=== PATIENT | female | born 1940 | race Caucasian/White ===

== ENCOUNTER 2023-03-11 09:28 | Emergency (ER) | payer MEDICARE, SELFPAY ==
--- NOTE | 2023-03-11 09:34 | ED.GENADULT ---
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 Patient states that 5 days ago she had an episode of dizziness with the room spinning after attempting to go for a walk. Patient states that she got very sweaty and had to lie down. Patient states that the episode eventually passed but she continues to feel generally unwell. Patient denies any current dizziness, lightheadedness, abdominal pain, nausea, vomiting, fever, chills, blurry vision, double vision, loss of vision, chest pain, difficulty breathing, shortness of breath, back pain, night sweats, pain with urination, increased urinary frequency, increased urinary urgency, blood in her urine or stool, syncope or a near syncopal episode, recent trauma or falls, bowel incontinence, bladder incontinence, bowel retention, bladder retention, or any other complaints at this time. Onset (ago): day(s) (5) Severity: mild Relieving factors: none Exacerbating factors: none Associated symptoms: denies other symptoms Treatments prior to arrival: none Related Data Previous Rx's Medication Instructions Recorded cefuroxime axetil 250 mg tablet 250 mg PO BID 7 days #14 tabs 03/11/23 Allergies Allergy/AdvReac Type Severity Reaction Status Date / Time Penicillins [PCN] Allergy Intermediate TOTAL BODY Verified 03/11/23 09:57 RASH Sulfa (Sulfonamide Allergy Mild HIVES Verified 03/11/23 09:57 Antibiotics) [SULFA (SULFONAMIDE ANTIBIOTICS)] amoxicillin [From AUGMENTIN] Allergy Unknown UNKNOWN Verified 03/11/23 09:57 clavulanic acid Allergy Unknown UNKNOWN Verified 03/11/23 09:57 [From AUGMENTIN] caffeine [CAFFEINE] AdvReac Unknown GI Verified 03/11/23 09:57 codeine [CODEINE] AdvReac Unknown GI Verified 03/11/23 09:57 Review of Systems Constitutional: Constitutional: Reports no additional constitutional complaints, Denies chills, Denies fever(s) and Denies night sweats Eyes: Eyes: Reports no additional eye complaints, Denies blurry vision, Denies change in vision, Denies diplopia, Denies eye discharge, Denies loss of vision and Denies eye pain ENT: Denies dizziness Cardiovascular: Cardiovascular: Reports no additional cardiovascular complaints, Denies chest pain, Denies lightheadedness, Denies Loss of Consciousness and Denies dyspnea Respiratory: Respiratory: Reports no additional respiratory complaints and Denies dyspnea Gastrointestinal: Gastrointestinal: Reports no additional gastrointestinal complaints, Denies abdominal pain, Denies melena, Denies hematochezia, Denies change in bowel habits and Denies change in stool character Genitourinary: Genitourinary: Denies hematuria, Denies urinary frequency, Denies dysuria, Denies urinary incontinence, Denies urinary hesitancy and Denies urinary urgency Musculoskeletal: Musculoskeletal: Reports no additional musculoskeletal complaints, Denies numbness and Denies tingling Neurologic: Denies dizziness, Denies loss of vision, Denies numbness and Denies tingling Psychiatric: Psychiatric: Reports no additional psychiatric complaints Endocrine: Endocrine: Reports no additional endocrine complaints Hematologic/Lymphatic: Hematologic/Lymphatic: Reports no additional hematologic/lymphatic complaints Allergic/Immunologic: Allergic/Immunologic: Reports no additional allergic/immunologic complaints PMFSH Past Medical History Attestation statement: The following information was validated with the patient. Source: old records reviewed and nursing notes reviewed Onset Date is defined in the Problem List Problems that require an onset date and time if occurred within 24 hrs of arrival to the ED Aortic Dissection and Rupture; Neurologic impairment; Cardiopulmonary Arrest; Endotracheal Intubation; Insertion or Replacement of Mechanical Circulatory Assist Device Social History Social History Alcohol intake: current Alcohol type: wine Smoked in Last 30 Days: No Advance Directives: No Advance Directives Information Provided: Yes Physical Exam ED Vital Signs: Vital Signs - 24 hr 03/11/23 09:51 03/11/23 09:59 Temperature 97.9 F Pulse Rate 94 81 Respiratory Rate 16 Blood Pressure 150/75 H Pulse Oximetry 97 Oxygen Delivery Method Room Air BMI result Body Mass Index 27.3 Const General: cooperative, no acute distress, alert and awake Nutritional Appearance: well nourished Orientation/consciousness: patient oriented x3 Limitations: no limitations HENMT Head: Yes normal to inspection and Yes atraumatic Ears: hearing grossly normal bilaterally and external ears normal General nose exam: Normal external nose present, no nasal discharge noted and no epistaxis Face and sinus: Yes normal facial exam, No abrasion and No laceration Mouth: Normal oral and palatal mucosa present, no drooling and no muffled voice Eyes General: appearance normal, both eyes and all related structures Periorbital: periorbital findings normal Eyelids: Yes eyelids normal Conjunctivae: conjunctivae normal Pupils: Equal, round and reactive pupils present EOM: EOMs intact bilaterally Neck Neck: Yes normal visual inspection, Yes full ROM and Yes no lymphadenopathy Chest Chest palpation & inspection: normal inspection of the chest Resp Effort & Inspection: normal respiratory effort and able to speak in complete sentences GI Inspection: Yes normal to inspection Neuro General: patient oriented x3 and moves all extremities Cranial nerves: Yes Equal, round and reactive pupils present Cognition (Neuro): normal cognition Motor exam (neuro): 5/5 motor strength present throughout Sensory Exam: Normal double simultaneous stimulation for sensation Coordination: [id number] test normal Extrem General: Yes normal to inspection, Yes full ROM and Yes capillary refill normal Psych Appearance: grossly normal Mental Status: mental status grossly normal Affect: normal affect Attitude: cooperative Thought process: Normal thought process present Thought content: Normal thought content present Insight: Good insight present (Psych) Medical Decision Making Medical Decision Making MDM Narrative: Patient is an 82 year old assigned female at with a 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 Patient's physical exam was unremarkable. Patient's blood work was unremarkable. including a negative troponin. Patient's urine showed an acute infection. Patient's EKG showed a LBB which is chronic for the patient (reviewed previous EKG from 2019 done in PCP office). Patient's chest x-ray and head CT showed no acute process. I explained my physical exam findings as well as all test results to the patient. I answered all questions asked by the patient. I stressed the importance of the patient taking her medication as prescribed. I stressed the importance of the patient following up with her primary care provider. I stressed the importance of the patient returning to the emergency department immediately if her symptoms were to worsen or if she were to develop any dizziness, shortness of breath, difficulty breathing, chest pain, blurry vision, loss of vision, nausea, vomiting, abdominal pain, fever, chills, back pain, or any other complaints. Patient verbalized agreement and understanding with this treatment plan and discharge. Differential Diagnosis Differential Diagnoses: The differential diagnosis associated with the presentation includes URI Viral illness COVID-19 Influenza RSV UTI Admission/Observation Consideration of admission/observation: Escalation of care including admission/observation considered Patient would have been admitted to the hospital had her work up had any findings where hospital admission was appropriate and her clinical presentation warranted hospital admission. Lab Data [facility] Lab Attestation statement: I reviewed the patient's lab results. My interpretation of these results are in the [facility] Rationale portion of this note. 03/11/23 10:19 03/11/23 10:19 Labs: Lab Results 03/11/23 03/11/23 Range/Units 10:13 10:19 WBC 5.8 (4.8-10.8) X10*3/uL RBC 4.99 (4.20-5.50) X10*6/uL Hgb 14.2 (12.0-16.0) g/dl Hct 43.3 (37.0-47.0) % MCV 86.8 (80.0-98.0) fL MCH 28.5 (27.0-33.0) pg MCHC 32.8 (31.0-35.0) g/dl RDW 13.3 (11.0-16.0) % Plt Count 120 L (160-400) X10*3/uL MPV Not Reportable Immature Gran % (Auto) 0.3 (0.0-0.4) % Neut % (Auto) 66.9 (45-73) % Lymph % (Auto) 17.8 L (20-40) % [place] % (Auto) 13.1 H (2-11) % Eos % (Auto) 1.0 (0-4) % Baso % (Auto) 0.9 (0-2) % Lymph # (Auto) 1.0 L (1.2-4.9) X10*3/uL [place] # (Auto) 0.8 (0.1-1.2) X10*3/uL Eos # (Auto) 0.1 (0.0-0.4) X10*3/uL Baso # (Auto) 0.1 (0.0-0.2) X10*3/uL Abs Immat Gran (auto) 0.02 (0.00-0.03) X10*3/uL Absolute Neuts (auto) 3.9 (2.0-8.3) x10*3/uL Absolute Nucleated RBC 0.000 (0.0-0.012) X10*3/uL Nucleated RBC % (auto) 0.0 (0.0-0.2) /100WBC Smear Tech's Comments VERIFIED PT 11.5 (11.1-13.3) SEC INR 0.9 (0.9-1.1) APTT 23.2 L (26.0-36.4) SEC Sodium 142 (135-145) mmol/L Potassium 4.3 (3.3-5.1) mmol/L Chloride 108 (96-108) mmol/L Carbon Dioxide 28 (22-29) mmol/L Anion Gap 10 L (12-20) BUN 14 (9-16) mg/dL Creatinine 0.81 (0.5-1.4) mg/dL Estim Creat Clear Calc 51.1 Estimated GFR > 60 Random Glucose 97 (60-115) mg/dL Calcium 9.8 (8.4-10.2) mg/dL Magnesium 2.1 (1.6-2.6) mg/dL Total Bilirubin 0.6 (0.0-1.0) mg/dL AST 20 (5-31) U/L ALT 14 (0-31) U/L Alkaline Phosphatase 69 (39-117) U/L Troponin I High Sens 3.7 (<3.5-17.0) ng/L Total Protein 7.4 (6.5-8.0) g/dL Albumin 4.3 (3.5-5.0) g/dL Urine Color Yellow Urine Appearance Cloudy Urine pH 7.0 (5.0-9.0) Ur Specific [place] 1.015 (1.005-1.025) Urine Protein Trace (Neg-Trace) mg/dL Urine Glucose (UA) Negative (Negative) mg/dL Urine Ketones Trace (Negative) mg/dL Urine Blood Negative (Negative) Urine Nitrite Negative (Negative) Ur Leukocyte Esterase Moderate (2+) H (Negative) Urine RBC 3-5 H (0-2) /HPF Urine WBC >50 H (0-5) /HPF Ur Squamous Epith Cells 0-2 (0-2) /HPF Urine Bacteria 4+ (None Seen) Hyaline Casts 0-2 (0-2) /LPF Influenza Type A (PCR) NEGATIVE (Negative) Influenza Type B (PCR) NEGATIVE (Negative) RSV RNA Qual (PCR) NEGATIVE (Negative) SARS-CoV-2 RNA (RT-PCR) NEGATIVE (Negative) Independent Interpretation I performed an independent interpretation of an: EKG, Plain X-Ray and CT Scan Interpretation: My interpretation is in agreement with the radiologist's impression of these imaging studies. EXAMINATION: CT HEAD WITHOUT CONTRAST CLINICAL INFORMATION: Dizziness COMPARISON: None available. TECHNIQUE: Contiguous axial imaging was performed from the skull base to vertex without intravenous administration of contrast. This CT examination was performed using dose optimization techniques as appropriate, variously including the following: *Automated exposure control *Adjustment of mA and/or kV according to patient size (this includes techniques or standardized protocols for targeted exams where dose is matched to indication/reason for exam; i.e. extremities or head) *Use of iterative reconstruction technique DLP: 575.00 mGy-cm FINDINGS: The ventricles and sulci are normal in size and configuration. No acute hemorrhage, mass effect or shift is evident. Tabares-white differentiation is maintained. In the posterior fossa, the brainstem, cerebellum and fourth ventricle image normally. The orbits are aphakic. The bony calvarium is intact. Mucosal thickening is noted within bilateral ethmoid air cells. CT/CT head/brain wo IV con IMPRESSION: 1. Unremarkable noncontrast brain CT. No acute hemorrhage, mass affect, shift or acute intracranial pathology. Dictated By: Oscar Barrios MD Signed By: Electronically signed by Oscar Barrios MD 03/11/23 1059: EXAMINATION: XR CHEST 2 VIEW CLINICAL INFORMATION: Dizziness COMPARISON: None TECHNIQUE: PA and lateral views of the chest obtained. FINDINGS: The lungs are clear. There are no pleural effusions. The cardiomediastinal silhouette is normal. Poststernotomy changes are present. XR/XR chest 2V IMPRESSION: No acute disease. Dictated By: Oscar Barrios MD Signed By: Electronically signed by Oscar Barrios MD 03/11/23 1040 Vent. Rate: 086 BPM Atrial Rate: 086 BPM P-R Int: 134 ms QRS Dur: 134 ms QT Int: 388 ms P-R-T Axes: 031 -51 090 degrees QTc Int: 464 ms Normal sinus rhythm Left axis deviation Left bundle branch block Abnormal ECG No previous ECGs available DD/ 0957 Radiology Impression Discussion of test interpretation with radiology: I have reviewed the radiologist's reading. Independent Historian Clinical information obtained from an independent historian. History obtained from or confirmed by: EMS (EMS provided additional history and confirmed the history provided by your patient.) Prescription Management I considered prescription management with: Antibiotic (patient prescribed an antibiotic for her UTI.) Discharge Plan Discharge Clinical Impression: Urinary tract infection Patient Disposition: Home, Self-Care Instructions: Urinary Tract Infection in Older Adults (ED) Additional Instructions: You expressed wanting an echocardiogram in the emergency department however, your current symptoms do no warrant an emergent echo. I recommend you following up with your primary care proivder but need for an echocardiogram on an out patient basis. Follow up with your primary care provider. Return to the emergency department immediately if your symptoms worsen or if you develop any dizziness, shortness of breath, difficulty breathing, chest pain, blurry vision, loss of vision, nausea, vomiting, abdominal pain, fever, chills, back pain, or any other complaints. Prescriptions: New cefuroxime axetil 250 mg tablet 250 mg PO BID 7 Days Qty: 14 0RF Referrals: Mahendra Giles MD [Primary Care Provider] - Print Language: Czech
[2023-03-11 09:42] VITALS: BP 150/82; PULSE 94; O2SAT 97
[2023-03-11 09:51] VITALS: BP 150/75; PULSE 94; RESP 16; TEMP 36.6; O2SAT 97; BMI 27.3
[2023-03-11 09:59] VITALS: PULSE 81
[2023-03-11 10:44] LABS: Alanine Aminotransferase 14 U/L (0-31); Albumin Level 4.3 g/dL (3.5-5.0); Alkaline Phosphatase 69 U/L (39-117); Anion Gap 10 (12-20); Aspartate Amino Transferase 20 U/L (5-31); Bilirubin Total 0.6 mg/dL (0.0-1.0); Blood Urea Nitrogen 14 mg/dL (9-16); Calcium 9.8 mg/dL (8.4-10.2); Carbon Dioxide 28 mmol/L (22-29); Chloride 108 mmol/L (96-108); Creatinine Clr Calc Pharmacy 51.1; Estimated Glomerular Filt Rate > 60; Glucose Random 97 mg/dL (60-115); Magnesium 2.1 mg/dL (1.6-2.6); Potassium 4.3 mmol/L (3.3-5.1); Sodium 142 mmol/L (135-145); Total Protein 7.4 g/dL (6.5-8.0)
[2023-03-11 11:42] VITALS: BP 139/77; PULSE 77; RESP 16; O2SAT 96
== END 2023-03-11 12:07 | disposition home or self-care (01) ==
PROVIDERS: Physician Assistant Medical; Emergency Provider Emergency Medicine; PCP Family Medicine
DX: R42 Dizziness and giddiness (principal); N39.0 Urinary tract infection, site not specified; I44.7 Left bundle-branch block, unspecified; Z79.899 Other long term (current) drug therapy; Z20.822 Contact with and (suspected) exposure to COVID-19; Z20.828 Contact with and (suspected) exposure to other viral communicable diseases
CPT/HCPCS: 0241U; 70450; 71046; 80053; 81001; 83735; 84484; 85025; 85610; 85730; 87086; 87088; 93005; 99284

== ENCOUNTER → 2023-03-11 09:48 | Outpatient (BNV) | payer MEDICARE, SELFPAY | PROVIDERS: Emergency Provider Emergency Medicine; PCP Family Medicine; Visit Provider Internal Medicine Cardiovascular Disease | DX: I44.7 Left bundle-branch block, unspecified (principal); R94.31 Abnormal electrocardiogram [ECG] [EKG] | CPT/HCPCS: 93010 ==

== ENCOUNTER 2023-03-30 11:16 | Emergency (ER) | payer MEDICARE, SELFPAY ==
[2023-03-30] VITALS (7 sets, daily range): BP systolic 134–170; BP diastolic 73–82; PULSE 69–90; RESP 16–18; TEMP 36.3–37.3; O2SAT 96–99; BMI 26.4
--- NOTE | ~2023-03-30 | XR_ITS ---
EXAMINATION: XR HIP, RIGHT CLINICAL INFORMATION: Pain. No trauma. COMPARISON: None available. TECHNIQUE: Frontal view of pelvis Two views of the right hip. FINDINGS: No fracture of pelvis or hips. No dislocation. Minor joint narrowing of the right and left hip joint. No significant bone spur. No bone erosions. Normal sacroiliac joint. Moderate degenerative spondylosis lower lumbar spine. XR/XR hip RT w PEL1V IMPRESSION: 1. No acute abnormality. 2. Mild degenerative joint narrowing of the right and left hip.
--- NOTE | ~2023-03-30 | US_ITS ---
EXAMINATION: US VENOUS ULTRASOUND WITH DOPPLER LOWER EXTREMITY, RIGHT CLINICAL INFORMATION: Right posterior knee pain. COMPARISON: None available. TECHNIQUE: Ultrasound of the deep veins is performed from the hip to the calf with compression sonography and color and pulse Doppler assessment. Spectral analysis with color-flow imaging is performed. FINDINGS: There is normal venous compression and respiratory variation and augmented flow. The visualized common femoral vein, superficial femoral vein, profunda femoral vein, popliteal vein, and the trifurcation region shows no evidence of deep venous thrombosis. Right popliteal fossa joint effusion. If the patient's symptoms persist, followup ultrasound in 5 days 7 days might be of value to exclude proximal propagation from a non-visualized calf vein. US/US venous duplex LE RT IMPRESSION: No DVT demonstrated in the right lower extremity. Right popliteal fossa joint effusion.
--- NOTE | 2023-03-30 12:15 | PC.NURSE ---
Pt is a&ox4 coming in with right leg pain x10 days, denies injury. Reports not being able to bare weight on right leg. able to make needs known. skin pwd. sensation intact on BLE, able to MAEI.
--- NOTE | 2023-03-30 13:22 | ED.LOWEXIN ---
HPI - Extremity Injury (Lower) General Chief Complaint: Extremity Injury, Lower Stated Complaint: R LEG PAIN,H/O SCIATIC NERVE PAIN PER EMS Time Seen by Provider: 03/30/23 13:12 Source: patient Mode of arrival: EMS Limitations: no limitations History of Present Illness HPI Narrative: Complaining of right-sided leg pain for 10 days. Patient denies any falls or any trauma. Patient states the pain is worse behind her knee and also has mild pain in the calf. Patient states that she has been doing physical therapy for pain for her back, likely sciatica from what she describes. Patient states that the pain has been going on for several weeks and that is why she is undergoing physical therapy. However, the pain got much worse today. Patient states that today she was unable to get up and walk. Patient's is 87 years old and could not help her. Patient denies any urinary/fecal incontinence/retention. Related Data Previous Rx's Medication Instructions Recorded cefuroxime axetil 250 mg tablet 250 mg PO BID 7 days #14 tabs 03/11/23 Allergies Allergy/AdvReac Type Severity Reaction Status Date / Time Penicillins [PCN] Allergy Intermediate TOTAL BODY Verified 03/30/23 11:38 RASH Sulfa (Sulfonamide Allergy Mild HIVES Verified 03/30/23 11:38 Antibiotics) [SULFA (SULFONAMIDE ANTIBIOTICS)] amoxicillin [From AUGMENTIN] Allergy Unknown UNKNOWN Verified 03/30/23 11:38 clavulanic acid Allergy Unknown UNKNOWN Verified 03/30/23 11:38 [From AUGMENTIN] caffeine [CAFFEINE] AdvReac Unknown GI Verified 03/30/23 11:38 codeine [CODEINE] AdvReac Unknown GI Verified 03/30/23 11:38 Review of Systems Review of Systems: Constitutional : No Weight loss, No Fever, No Chills, No Night Sweats, No Fatigue, No Malaise ENT/Mouth : No Hearing loss, No Ear Pain, No Nasal Congestion, No Sinus Pain, No Hoarseness, No sore throat, No Rhinorrhea, No Swallowing Difficulty Eyes: No Eye Pain, No Swelling, No Redness, No Foreign Body, No Discharge, No Vision Changes Cardiovascular : No Chest Pain, No SOB, No Dyspnea on Exertion, No Orthopnea, No Edema, No Palpitations Respiratory : No Cough, No Sputum, No Wheezing, No Smoke Exposure, No Dyspnea Gastrointestinal : No Nausea, No Vomiting, No Diarrhea, No Constipation, No abdominal Pain, No Hematochezia, No Melena Genitourinary : no irregular bleeding, No Dysuria, No Urinary Frequency, No Hematuria, No Urinary Incontinence, No Urgency, No Flank Pain, No Urinary Flow Changes, No Hesitancy Musculoskeletal : Complaining of chronic lower back pain radiating towards the right hamstring. Complaining of pain behind the knee and upper calf on the right. 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/30/23 @ 15:52 by Nely Roberts MD) Heart base tumor Social History Social History Alcohol intake: current Alcohol type: wine Smoked in Last 30 Days: No Use of substances other than those prescribed or required for medical reasons: No Advance Directives: Yes Advance Directives Information Provided: Yes Advance Directives on File: No Physical Exam Vital Signs: Vital Signs: Last Vital Signs Temp 99.1 F 03/30/23 14:12 Pulse 84 03/30/23 14:12 Resp 16 03/30/23 14:12 BP 147/73 H 03/30/23 14:12 Pulse Ox 97 03/30/23 14:12 O2 Del Method Room Air 03/30/23 14:12 BMI result Body Mass Index 26.4 Const: Other: Appearance: Alert. Oriented X3. No acute distress. Eyes: Pupils equal, round and reactive to light. ENT: Pharynx normal. Neck: Normal inspection. Neck supple. No lymph nodes noted. No crepitus CVS: Normal heart rate and rhythm. Pulses normal. Normal S1 and S2 Respiratory: No respiratory distress. Breath sounds normal. No Wheezing. No rales Abdomen: Soft and nontender. No rigidity. No distention. Skin: Skin warm and dry. Normal skin color. Normal skin turgor. Extremities: No lower extremity edema. No Lacerations. No Rash no significant pain to palpation in the right calf, negative straight leg raise test on the left, mildly positive on the right, moderate pain to palpation behind the right knee. Neuro: Oriented X 3. No motor deficit. No sensory deficit. Moving all extremities. No slurred speech. CN 2 through 12 grossly intact Psych: calm, cooperative, normal affect Course Course Course Narrative: -ultrasound of the right lower extremity pending -x-ray of the right hip/pelvis pending -I discussed with the patient that after workup is done, we will see how she does standing up and walking. If she can not do so, she may need PT/case management consult -at this time, patient declined any pain medication. Medical Decision Making Medical Decision Making MDM Narrative: -my interpretation of x-ray of the hip: Chronic changes, no fracture, no dislocation. Osteoarthritis -ultrasound of the right lower extremity shows right popliteal fossa joint effusion. -we attempted to ambulate the patient. Patient is unable to walk more than 2 steps. -physical therapy and Case Management consult pending Differential Diagnosis Differential Diagnoses: The differential diagnosis associated with the presentation includes (DVT, Fontana's cyst, joint effusion, right hip dislocation/fracture/contusion/osteoarthritis) Admission/Observation Consideration of admission/observation: Escalation of care including admission/observation considered (Patient seems to be unable to walk, patient will likely be case management and physical therapy, will be under observation in the ED) Radiology Impression Discussion of test interpretation with radiology: I have reviewed the radiologist's reading. Radiologist Impression: FINDINGS: No fracture of pelvis or hips. No dislocation. Minor joint narrowing of the right and left hip joint. No significant bone spur. No bone erosions. Normal sacroiliac joint. Moderate degenerative spondylosis lower lumbar spine. XR/XR hip RT w PEL1V IMPRESSION: 1. No acute abnormality. 2. Mild degenerative joint narrowing of the right and left hip FINDINGS: There is normal venous compression and respiratory variation and augmented flow. The visualized common femoral vein, superficial femoral vein, profunda femoral vein, popliteal vein, and the trifurcation region shows no evidence of deep venous thrombosis. Right popliteal fossa joint effusion. If the patient's symptoms persist, followup ultrasound in 5 days 7 days might be of value to exclude proximal propagation from a non-visualized calf vein. US/US venous duplex LE RT IMPRESSION: No DVT demonstrated in the right lower extremity. Right popliteal fossa joint effusion. Discharge Plan Discharge Clinical Impression: Chronic leg pain, Joint effusion Patient Disposition: Still a Patient Prescriptions: No Action cefuroxime axetil 250 mg tablet 250 mg PO BID 7 Days Qty: 14 0RF
--- NOTE | 2023-03-30 20:12 | PC.NURSE ---
Pt is alert and oriented x3, no signs of distress. Family no longer at bedside. Plan of care ongoing.
[2023-03-31 03:45] VITALS: BP 153/76; PULSE 77; RESP 16; TEMP 36.4; O2SAT 95
[2023-03-31 06:00] VITALS: BP 144/70; PULSE 87; RESP 16; TEMP 36.9; O2SAT 97
--- NOTE | 2023-03-31 07:13 | PC.NURSE ---
patient a&ox3, vss, pt c/o rt leg pain 6/10 at rest and 9/10 with movement/ambulation, + csm/pulses to BLE- no edema noted, lungs clear, pt wheelchair to bathroom with assist, awaiting case management/pt, vss, will continue to monitor
[2023-03-31 07:30] VITALS: BP 144/70; PULSE 87; O2SAT 97
[2023-03-31] MEDS: Acetaminophen 325 MG TABLET 650 MG PO (09:31)
[2023-03-31] MEDS: Aspirin 81 MG TAB.CHEW PO (09:32)
--- NOTE | 2023-03-31 09:33 | PC.NURSE ---
pt medicated per order
[2023-03-31 10:18] VITALS: BP 148/73; PULSE 82; RESP 16; TEMP 36.8; O2SAT 98
--- NOTE | 2023-03-31 10:18 | PC.NURSE ---
patient a&ox3, vss, pt moved into room 7 for hospital convenience, pt assisted to bathroom with wheelchair, call fountain within reach, will continue to monitor.
[2023-03-31 13:57] VITALS: BP 123/67; PULSE 92; RESP 12; TEMP 36.9; O2SAT 96
--- NOTE | 2023-03-31 15:53 | MHC.CM.PN ---
Addendum entered by Renita Germain 03/31/23 16:08: CM CALLED PTS DAUGHTER, KAY AND INFORMED HER NA WOULD BE CALLING THE PT DIRECTLY TO INITIATE SOC KAY REPORTS HER MOTHER DID NOT END UP GETTING A CHAIR FROM [facility] AND THEY USED AN OFFICE CHAIR TO GET HER BACK IN THE BUILDING AT HOME CM ASSURED HER THE DME STORE WAS CONTACTED AND IT WAS CONFIRMED THE PT COULD PICK ON UP THAT DAY SHE REPORTS SHE IS UNSURE HER MOTHER EXPLAINED IT CORRECTLY BECAUSE THEY WERE LOOKING FOR A RX CM EXPLAINED THE REASONS A SCRIPT WAS NOT SENT INCLUDING IT TAKES LONGER AND PT WILL LIKELY NOT NEED IT GROUP HOME KAY REPORTS THEY HAVE ONE COMING THIS EVENING THAT THEY ARE BORROWING FROM HER UNCLE AND SHE WILL GO TO A DME STORE TOMORROW AND GET THE PT A NEW ONE PT DC AND FOLLOW UP INSTRUCTIONS WERE READ TO KAY AND SHE WILL MAKE AN APPT WITH ORTHO AND THE PCP FOR HER MOTHERS FOLLOW UP Original Note: CM CONSULT RECEIVED, PT SEEN BY PT AND STR WAS RECOMMENDED CM MET WITH PT AND BEDSIDE AND DAUGHTERKAY ON SPEAKERPHONE THEY REPORT THE PT DOES NOT NEED STR, SHE LIVES IN SENIOR HOUSING AND THEY DO PROVIDE SOME ASSISTANCE PT CONCERNED ABOUT HER KNEE AND HAVING A WHEEL CHAIR CM CALLED [facility], THEY ARE UNABLE TO LOAN HER A W/C BECAUSE THEY NEED IT IN THE MAIN BUILDING PT REPORTS SHE IS WILLING TO RENT ONE, CM CALLED [facility] IN [place] PER PT REQUEST [facility] CONFIRMED THEY HAVE SEVERAL WHEEL CHAIRS ON SITE PT COULD RENT AND SHE CAN COME ANYTIME TO GET ONE PER DISCUSSION WITH PT AND , HE WILL DRIVE HER HOME, THEY WILL STOP AND GET A WHEEL CHAIR ON THE WAY THEY ARE INTERESTED IN [facility] FOR SN AND PT REFERRAL MADE TO NA
== END 2023-03-31 14:27 | disposition home or self-care (01) ==
PROVIDERS: Emergency Provider Emergency Medicine; PCP Family Medicine
DX: M25.461 Effusion, right knee (principal); M79.604 Pain in right leg
CPT/HCPCS: 73502; 93971; 97162; 99284

== ENCOUNTER 2023-04-20 12:33 | Outpatient (AMB) | payer MEDICARE, SELFPAY ==
--- NOTE | 2023-04-20 12:48 | MHC.OFFVIS ---
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 Patient reports that she has been having pain for about a year now. she is active and walks about 1-2 miles a day but her pain has increased more recently. While walking she occasionally feels that the knee is unstable with weight bearing. She currently has a blood clot in the right lower extremity, which she is taking eliquis. She has been in a wheelchair more recently due to pain in the right knee. Patient [facility] have [facility], I informed them to have the MRI report faxed to us and obtain a disc Allergies Penicillins [PCN] Allergy (Intermediate, Verified 04/20/23 12:54) TOTAL BODY RASH Sulfa (Sulfonamide Antibiotics) [SULFA (SULFONAMIDE ANTIBIOTICS)] Allergy (Mild, Verified 04/20/23 12:54) HIVES amoxicillin [From AUGMENTIN] Allergy (Unknown, Verified 04/20/23 12:54) UNKNOWN clavulanic acid [From AUGMENTIN] Allergy (Unknown, Verified 04/20/23 12:54) UNKNOWN caffeine [CAFFEINE] Adverse Reaction (Unknown, Verified 04/20/23 12:54) GI codeine [CODEINE] Adverse Reaction (Unknown, Verified 04/20/23 12:54) 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 SHe had swelling in the entire leg, devbeloped pain and was recently diagnosed with a DVT and started on eliquis. She feels she is improving and can put her foot down with some weight now. She complains of occasional pain in her knee for ~1 year but it got significantly worse coinciding with the swelling. She has been attending PT, with some relief. She was seen in the ED on 03/30/23 with complaints of worsening pain, and an ultrasound was performed which ruled out DVT at the time. She reports walking ~1-2 miles daily, which has been difficult for her recently due to her pain. 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 Surgical History (Updated 04/20/23 @ 12:57 by Shivani Philippe CMA) H/O: hysterectomy H/O lumbosacral spine surgery H/O heart surgery Social History Alcohol intake: current Alcohol type: wine Review of Systems Const All systems reviewed & are unremarkable except as noted in HPI and below Physical Exam Const General: no acute distress, alert and awake Orientation/consciousness: patient oriented x3 HEENT Head: Yes normocephalic and Yes atraumatic Eyes EOM: EOMs intact bilaterally Resp Effort & Inspection: normal respiratory effort and able to speak in complete sentences Cardio Jugular venous distension: no JVD Skin General skin exam: turgor normal Rashes: no rashes Neuro General: patient oriented x3 Extrem Other: medial joint line ttp + molina no obvious joint effusion Psych Appearance: grossly normal Affect: normal affect Attitude: cooperative Results Reviewed Results Reviewed: I personally reviewed relevant radiographs. mild medial compartment joint space narrowing Assessment & Plan Assessment & Plan (1) DVT (deep venous thrombosis): Code(s): I82.409 - Acute embolism and thrombosis of unspecified deep veins of unspecified lower extremity Plan: Her symptoms seem attributable to DVT rather than OA although both are likely contributory. She is gettin an MRI tomorrow and will send me results. In the meantime PT and continue treatment for DVT (2) Right knee pain: Code(s): M25.561 - Pain in right knee Plan Prepared for Brian Sutton MD by Panchito Garcia, medical anthropologist, on 04/20/23 at 12:55 PM, EST. Orders: Orders XR knee standing BI 04/20/23 M25.569 - Pain in unspecified knee XR knee LT 2V 04/20/23 M25.569 - Pain in unspecified knee XR knee RT 2V 04/20/23 M25.569 - Pain in unspecified knee Coding Level of Care Code New Pt Level 4 (32555) Diagnoses DVT (deep venous thrombosis) I82.409 Right knee pain M25.561
== END 2023-04-20 14:12 | disposition home or self-care (01) ==
PROVIDERS: PCP Family Medicine; Visit Provider Orthopaedic Surgery
DX: I82.401 Acute embolism and thrombosis of unspecified deep veins of right lower extremity (principal); M25.561 Pain in right knee
CPT/HCPCS: 99204

== ENCOUNTER 2023-04-20 12:33 | Outpatient (REF) | payer MEDICARE, SELFPAY ==
--- NOTE | ~2023-04-20 | XR_ITS ---
EXAMINATION: XR KNEE AP STANDING XR KNEE, LEFT XR KNEE, RIGHT CLINICAL INFORMATION: Pain in unspecified knee COMPARISON: None available. TECHNIQUE: AP bilateral standing view of the knees was obtained. Bilateral lateral and sunrise views is of each knee. FINDINGS: No fracture. Small right knee joint effusion. No left knee joint effusion. Alignment is anatomic. Joint spaces are maintained. Question mild right chondrocalcinosis in the lateral joint compartment. Question small ossific or calcific density superior to the right anterior tibial plateau on the lateral view versus increased density in Hoffa's fat pad. Small calcific density is seen adjacent to the left lateral femoral condyle. Bilateral quadriceps enthesopathy. XR/XR knee LT 2V IMPRESSION: 1. Question mild right chondrocalcinosis. 2. Small right knee joint effusion. 3. Small calcific or ossific density superior to the right anterior tibial plateau on the lateral view versus increased density in Hoffa's fat pad. 4. Small calcific density adjacent to the left lateral femoral condyle.
--- NOTE | ~2023-04-20 | XR_ITS ---
EXAMINATION: XR KNEE AP STANDING XR KNEE, LEFT XR KNEE, RIGHT CLINICAL INFORMATION: Pain in unspecified knee COMPARISON: None available. TECHNIQUE: AP bilateral standing view of the knees was obtained. Bilateral lateral and sunrise views is of each knee. FINDINGS: No fracture. Small right knee joint effusion. No left knee joint effusion. Alignment is anatomic. Joint spaces are maintained. Question mild right chondrocalcinosis in the lateral joint compartment. Question small ossific or calcific density superior to the right anterior tibial plateau on the lateral view versus increased density in Hoffa's fat pad. Small calcific density is seen adjacent to the left lateral femoral condyle. Bilateral quadriceps enthesopathy. XR/XR knee standing BI IMPRESSION: 1. Question mild right chondrocalcinosis. 2. Small right knee joint effusion. 3. Small calcific or ossific density superior to the right anterior tibial plateau on the lateral view versus increased density in Hoffa's fat pad. 4. Small calcific density adjacent to the left lateral femoral condyle.
--- NOTE | ~2023-04-20 | XR_ITS ---
EXAMINATION: XR KNEE AP STANDING XR KNEE, LEFT XR KNEE, RIGHT CLINICAL INFORMATION: Pain in unspecified knee COMPARISON: None available. TECHNIQUE: AP bilateral standing view of the knees was obtained. Bilateral lateral and sunrise views is of each knee. FINDINGS: No fracture. Small right knee joint effusion. No left knee joint effusion. Alignment is anatomic. Joint spaces are maintained. Question mild right chondrocalcinosis in the lateral joint compartment. Question small ossific or calcific density superior to the right anterior tibial plateau on the lateral view versus increased density in Hoffa's fat pad. Small calcific density is seen adjacent to the left lateral femoral condyle. Bilateral quadriceps enthesopathy. XR/XR knee RT 2V IMPRESSION: 1. Question mild right chondrocalcinosis. 2. Small right knee joint effusion. 3. Small calcific or ossific density superior to the right anterior tibial plateau on the lateral view versus increased density in Hoffa's fat pad. 4. Small calcific density adjacent to the left lateral femoral condyle.
== END 2023-04-20 12:34 | disposition home or self-care (01) ==
LOC: HO.HOSX 12:33
PROVIDERS: PCP Family Medicine; Visit Provider Orthopaedic Surgery
DX: I82.401 Acute embolism and thrombosis of unspecified deep veins of right lower extremity (principal); M25.561 Pain in right knee; Z79.01 Long term (current) use of anticoagulants
CPT/HCPCS: 73560; 73565; 99202

== ENCOUNTER 2023-06-13 19:06 | Emergency (ER) | payer MEDICARE, OTHER, SELFPAY ==
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
--- NOTE | ~2023-06-13 | XR_ITS ---
EXAMINATION: XR HIP, RIGHT CLINICAL INFORMATION: Pain COMPARISON: None available. TECHNIQUE: Single view the pelvis 2 views of the right hip FINDINGS: No acute visible fracture or dislocation. Degenerative arthropathy of the bilateral femoral acetabular joints. Degenerative changes of the lumbosacral spine. Joint space alignment otherwise maintained. Soft tissues are unremarkable. Fecal loading of the colon. Soft tissues are unremarkable. XR/XR hip RT w PEL1V IMPRESSION: 1. No acute visible fracture or dislocation. 2. Degenerative arthropathy of the bilateral femoral acetabular joints. 3. Degenerative changes of the lumbosacral spine.
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
[2023-06-13 19:27] VITALS: BP 128/84; PULSE 88; O2SAT 96
[2023-06-13 19:40] VITALS: BP 148/63; PULSE 88; RESP 16; TEMP 36.6; O2SAT 98; BMI 25.0
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
--- NOTE | 2023-06-13 19:55 | PC.NURSE ---
pt brought back directly from waiting room to xray.
[2023-06-13 21:17] LABS: MANUAL DIFF FLAG NO
[2023-06-13 21:18] LABS: Basophils Absolute Auto 0.1 X10*3/uL (0.0-0.2); Basophils Percent Auto 1.2 % (0-2); Eosinophils Absolute Auto 0.1 X10*3/uL (0.0-0.4); Eosinophils Percent Auto 1.5 % (0-4); Hemoglobin 13.2 g/dl (12.0-16.0); Imm Gran Abs Auto 0.02 X10*3/uL (0.00-0.03); Imm Gran Pct Auto 0.3 % (0.0-0.4); Lymphocytes Absolute Auto 1.9 X10*3/uL (1.2-4.9); Lymphocytes Percent Auto 31.9 % (20-40); Mean Corpuscular HGB Conc 32.2 g/dl (31.0-35.0); Mean Corpuscular Hemoglobin 28.8 pg (27.0-33.0); Mean Corpuscular Volume 89.3 fL (80.0-98.0); Mean Platelet Volume 9.4 fL (9.4-12.3); Monocytes Absolute Auto 0.7 X10*3/uL (0.1-1.2); Monocytes Percent Auto 11.3 % (2-11); Neutrophils Absolute Auto 3.2 x10*3/uL (2.0-8.3); Neutrophils Percent Auto 53.8 % (45-73); Platelet Count 189 X10*3/uL (160-400); Red Blood Count 4.59 X10*6/uL (4.20-5.50); Red Cell Distribution Width 14.4 % (11.0-16.0); White Blood Count 5.9 X10*3/uL (4.8-10.8)
[2023-06-13 21:24] LABS: Prothrombin Time 12.4 SEC (11.1-13.3)
[2023-06-13 21:27] LABS: Partial Thromboplastin Time 34.3 SEC (26.0-36.8)
[2023-06-13 21:34] LABS: Anion Gap 12 (12-20); Blood Urea Nitrogen 21 mg/dL (9-16); Calcium 9.7 mg/dL (8.4-10.2); Carbon Dioxide 27 mmol/L (22-29); Chloride 107 mmol/L (96-108); Creatinine Clr Calc Pharmacy 47.8; Estimated Glomerular Filt Rate > 60; Glucose Random 95 mg/dL (60-115); Potassium 4.2 mmol/L (3.3-5.1); Sodium 142 mmol/L (135-145)
== END 2023-06-13 22:47 | disposition home or self-care (01) ==
PROVIDERS: Physician Assistant; Emergency Provider Internal Medicine; PCP Family Medicine
DX: S49.91XA Unspecified injury of right shoulder and upper arm, initial encounter (principal); S89.91XA Unspecified injury of right lower leg, initial encounter; M25.551 Pain in right hip; M25.561 Pain in right knee; R51.9 Headache, unspecified; M54.2 Cervicalgia; V43.62XA Car passenger injured in collision with other type car in traffic accident, initial encounter; Y93.9 Activity, unspecified; Y92.410 Unspecified street and highway as the place of occurrence of the external cause; Y99.8 Other external cause status; Z79.899 Other long term (current) drug therapy; Z79.01 Long term (current) use of anticoagulants
CPT/HCPCS: 36415; 70450; 72125; 73502; 73564; 80048; 85025; 85610; 85730; 99281; 99284